=== PATIENT | female | born 1965 | race Two or more races ===

== ENCOUNTER 2020-11-19 13:10 | Outpatient (CLI) | payer OTHER | END 2020-11-19 13:23 | disposition home or self-care (01) | LOC: SONOGRAMA 13:10 | PROVIDERS: ATTEND Internal Medicine Cardiovascular Disease | DX: M19.90 Unspecified osteoarthritis, unspecified site (principal) ==

== ENCOUNTER 2020-11-25 12:10 | Outpatient (CLI) | payer OTHER | END 2020-11-25 15:00 | disposition home or self-care (01) | LOC: LAB 12:10 | PROVIDERS: ATTEND Orthopaedic Surgery | DX: R07.89 Other chest pain (principal); I10 Essential (primary) hypertension ==